=== PATIENT | female | born 1960 | race Caucasian/White ===

== ENCOUNTER 2017-05-02 20:10 | Emergency (ER) | payer MEDICARE, MEDICAID ==
[~2017-05-02] VITALS: Ht 162.6 cm; Wt 116.1 kg
[~2017-05-02 20:10] MED LIST: AMLODIPINE BESY10 MG PO; ANTI-ITCH28 GM TP; ARTIFICIAL TEA1 EACH OPHTHALMIC; CALCIUM500 M1 PO; CLARITIN10 MG PO; COZAAR 50 MG TA50 M1 PO; IBUPROFEN 800800 M1 PO; LOPERAMIDE 2 MG2 M1 PO; MILK OF MA2400 MG/10 PO; NORTRIPTYLINE H25 M3 PO; NYSTATIN 100,0015 G1 TOP; Q-TUSSIN100 MG/5 M PO; SYNTHROID175 MCG PO; TOPROL XL25 MG PO; TRAMADOL 50 MG50 MG PO; TRIAMCINOLONE A80 G2 TOP; TYLENOL EXTRA500 MG PO; VENTOLIN HFA 1818 GM INH; VITAMIN B-1100 M1 PO; VITAMIN D1000 UNI1 PO; ZPAK PO
[2017-05-02] MEDS ORDERED: LOPRESSOR100 M1 PO (20:32)
[2017-05-02] MEDS ORDERED: [UNRECOGNIZED DRUG - OTHER] (20:33)
[2017-05-02] MEDS ORDERED: BENZONATATE200 MG PO (20:33)
[2017-05-02] MEDS ORDERED: CALMOSEPTINE O3.5 GM TOP (20:33)
[2017-05-02] MEDS ORDERED: VITAMIN B-12500 MCG PO (20:33)
[2017-05-02] MEDS ORDERED: TUSSIN100 MG/5 M PO (20:34)
[2017-05-02 21:22] LABS: ABSOLUTE BASOPHILS 0.1 thou/uL (0.0-0.2); ABSOLUTE EOSINOPHILS 0.3 thou/uL (0.0-0.7); ABSOLUTE LYMPHOCYTES 2.6 thou/uL (0.8-5.3); ABSOLUTE MONOCYTES 0.7 thou/uL (0.0-1.2); ABSOLUTE NEUTROPHILS 5.4 thou/uL (1.6-8.1); BASOPHILS 0.6 %; EOSINOPHILS 3.1 %; HEMATOCRIT 40.7 % (37.0-47.0); HEMOGLOBIN 13.4 gm/dL (12.0-15.0); LYMPHOCYTES 28.5 %; MCHC 32.8 g/dL (28.0-37.0); MCV 91.5 fL (80.0-100.0); MPV 7.8 fl. (7.2-11.1); NUCLEATED RBCS 0 /100WBC; PLATELET COUNT* 274 thou/uL (150-400); POLYS 59.8 %; RBC 4.45 mil/uL (4.20-5.00); RDW-CV 13.9 % (10.5-14.5)
[2017-05-02 21:37] LABS: ANION GAP 7 mmol/L (7-16); BUN 13 mg/dL (7-18); CALCIUM 9.6 mg/dL (8.5-10.1); CHLORIDE 100 mmol/L (98-107); CO2 31 mmol/L (21-32); CREATININE 0.9 mg/dL (0.6-1.3); GLUCOSE 118 mg/dL (70-99); POTASSIUM 3.7 mmol/L (3.5-5.1); SODIUM 138 mmol/L (136-145)
[2017-05-02 21:48] LABS: ALBUMIN 3.6 g/dL (3.4-5.0); ALKALINE PHOSPHATASE 140 U/L (46-116); NT-PRO BRAIN NAT PEPTIDE 231 pg/mL (<300); SGOT 17 U/L (15-37); SGPT 24 U/L (30-65); TOTAL BILIRUBIN 0.2 mg/dL (<0.1-1.0); TOTAL PROTEIN 7.8 g/dL (6.4-8.2); TROPONIN-I LEVEL <0.06 ng/mL (<0.06)
[2017-05-02 23:39] VITALS: BP 146/90
--- NOTE | 2017-05-03 16:36 | EKG ---
[place] [address] ELECTROCARDIOGRAM REPORT Name: JEN DOUGLAS Room: [facility]#: [id number] Admission: 05/02/17 Attend Phys: Discharge: 05/02/17 Date of : 60 Report #: [id number] THIS REPORT FOR: //name// [facility] ED Test Date: 2017-05-02 Test Time: 21:06:28 Pat Name: JEN DOUGLAS Department: Room: Gender: F Lease Administration Analyst: ARLEY : 1960 Requested By: Shailesh Kumar Order Number: [id number] MD: Slade Barcenas Measurements Intervals [place] Rate: 84 P: 61 [place]: 176 QRS: 19 QRSD: 112 T: 66 QT: 357 QTc: 422 Interpretive Statements Sinus rhythm No previous ECG available for comparison Electronically Signed On 05-03-2017 16:36:10 SALES AND MARKETING ENGINEER by Slade Barcenas [email or web address] <ELECTRONICALLY SIGNED> By: Slade Barcenas MD, [facility] 05/03/17 1636 2106 2106 Slade Barcenas MD, FACC /EPI
== END 2017-05-02 23:40 | disposition home or self-care (01) ==
LOC: M.ERS 20:10
PROVIDERS: Nurse Practitioner Family
DX: I10 Essential (primary) hypertension (principal); E89.0 Postprocedural hypothyroidism; Z98.890 Other specified postprocedural states

== ENCOUNTER 2017-06-05 16:51 | Emergency (ER) | payer MEDICARE, MEDICAID ==
[~2017-06-05] VITALS: Ht 162.6 cm; Wt 113.8 kg
[~2017-06-05 16:51] MED LIST changes: +BENZONATATE200 MG PO; +CALMOSEPTINE O3.5 GM TOP; +LOPRESSOR100 M1 PO; +TUSSIN100 MG/5 M PO; +VITAMIN B-12500 MCG PO; +[UNRECOGNIZED DRUG - OTHER]
[2017-06-05 17:36] LABS: INFLUENZA A ANTIGEN None Detected (None Detect); INFLUENZA B ANTIGEN None Detected (None Detect)
[2017-06-05] MEDS ORDERED: ALBUTEROL2.5 MG/0.5 INH (18:20)
[2017-06-05] MEDS ORDERED: AUGMENTIN 875-1 EACH PO (18:20)
[2017-06-05] MEDS ORDERED: NEBULIZER MISCELL (18:20)
[2017-06-05 18:51] VITALS: BP 136/92
--- NOTE | 2017-06-06 15:52 | EKG ---
[place] [address] ELECTROCARDIOGRAM REPORT Name: JEN DOUGLAS Room: [facility]#: [id number] Admission: 06/05/17 Attend Phys: Discharge: 06/05/17 Date of : 60 Report #: [id number] THIS REPORT FOR: //name// [facility] ED Test Date: 2017-06-05 Test Time: 18:38:07 Pat Name: JEN DOUGLAS Department: Room: Gender: F Spring Manufacturing Set Up Technician: Ender SAMANO : 1960 Requested By: Forrest Aldana Order Number: [id number] MD: Gregorio Rey Measurements Intervals [place] Rate: 67 P: 65 [place]: 174 QRS: 23 QRSD: 102 T: 63 QT: 420 QTc: 444 Interpretive Statements Sinus rhythm Baseline wander in lead(s) V1,V2 Electronically Signed On 06-06-2017 15:52:35 HAIRMASTERS MANAGER by Gregorio Rey [email or web address] <ELECTRONICALLY SIGNED> By: Gregorio Rey MD, [facility] 06/06/17 1552 1838 1838 Gregorio Rey MD, FACC /EPI
== END 2017-06-05 18:52 | disposition home or self-care (01) ==
LOC: M.ERS 16:51
PROVIDERS: Nurse Practitioner Family
DX: J40 Bronchitis, not specified as acute or chronic (principal); I10 Essential (primary) hypertension; Z88.8 Allergy status to other drugs, medicaments and biological substances

== ENCOUNTER → 2017-07-13 | Outpatient (CLI) | payer MEDICARE, MEDICAID ==
[~2017-07-13] MED LIST changes: +ALBUTEROL2.5 MG/0.5 INH; +ANTIVERT25 MG PO; +AUGMENTIN 875-1 EACH PO; +KLOR-CON 1010 MEQ PO; +LASIX 20 MG TAB20 MG PO; +LEVAQUIN 500 M500 M2 PO; +MOBIC15 MG PO; +MUCINEX600 MG PO; +NEBULIZER MISCELL; +NORVASC5 MG PO; +PREDNISONE 20 M20 MG PO
== END ==
LOC: M.RAD 13:57
DX: R06.09 Other forms of dyspnea (principal); R60.0 Localized edema

== ENCOUNTER → 2017-07-19 | Outpatient (CLI) | payer MEDICARE, MEDICAID | LOC: M.MRI 11:17 | DX: M23.361 Other meniscus derangements, other lateral meniscus, right knee (principal); M17.9 Osteoarthritis of knee, unspecified ==

== ENCOUNTER 2017-08-27 07:55 | Inpatient (IN) | payer MEDICARE, MEDICAID ==
[~2017-08-27] VITALS: Ht 162.6 cm; Wt 108.9 kg
[~2017-08-27 07:55] MED LIST changes: -ANTIVERT25 MG PO; -KLOR-CON 1010 MEQ PO; -LASIX 20 MG TAB20 MG PO; -LEVAQUIN 500 M500 M2 PO; -MOBIC15 MG PO; -MUCINEX600 MG PO; -NORVASC5 MG PO; -PREDNISONE 20 M20 MG PO
[2017-08-27 07:58] VITALS: BP 161/102
[2017-08-27] MEDS ORDERED: LASIX 20 MG TAB20 MG PO (08:11)
[2017-08-27] MEDS ORDERED: MOBIC15 MG PO (08:12)
[2017-08-27] MEDS ORDERED: KLOR-CON 1010 MEQ PO (08:12)
[2017-08-27 08:16] LABS: ABSOLUTE EOSINOPHILS 0.2 thou/uL (0.0-0.7); ABSOLUTE LYMPHOCYTES 1.2 thou/uL (0.8-5.3); ABSOLUTE MONOCYTES 0.6 thou/uL (0.0-1.2); ABSOLUTE NEUTROPHILS 4.3 thou/uL (1.6-8.1); BASOPHILS 0.7 %; EOSINOPHILS 3.1 %; HEMATOCRIT 39.5 % (37.0-47.0); HEMOGLOBIN 13.2 gm/dL (12.0-15.0); LYMPHOCYTES 18.4 %; MCHC 33.5 g/dL (28.0-37.0); MCV 89.5 fL (80.0-100.0); MPV 8.2 fl. (7.2-11.1); NUCLEATED RBCS 0 /100WBC; PLATELET COUNT* 224 thou/uL (150-400); POLYS 68.8 %; RBC 4.41 mil/uL (4.20-5.00); RDW-CV 14.1 % (10.5-14.5); WBC 6.3 thou/uL (4.0-11.0)
[2017-08-27 08:33] LABS: ANION GAP 9 mmol/L (7-16); BUN 11 mg/dL (7-18); CALCIUM 8.9 mg/dL (8.5-10.1); CHLORIDE 102 mmol/L (98-107); CO2 29 mmol/L (21-32); CREATININE 0.9 mg/dL (0.6-1.3); GLUCOSE 129 mg/dL (70-99); POTASSIUM 3.7 mmol/L (3.5-5.1); SODIUM 140 mmol/L (136-145)
[2017-08-27 08:44] LABS: ALBUMIN 3.4 g/dL (3.4-5.0); ALKALINE PHOSPHATASE 124 U/L (46-116); NT-PRO BRAIN NAT PEPTIDE 120 pg/mL (<300); SGOT 16 U/L (15-37); SGPT 22 U/L (30-65); TOTAL BILIRUBIN 0.3 mg/dL (<0.1-1.0); TROPONIN-I LEVEL <0.06 ng/mL (<0.06)
[2017-08-27 09:30] VITALS: BP 153/93
[2017-08-27 09:44] VITALS: BP 174/94
--- NOTE | 2017-08-27 09:44 | NUR ---
PATIENT ARRIVED TO ROOM 111 VIA CART FROM ER AT THIS TIME. ASSESSMENT AND HISTORY OBTAINED. PATIENT DENIES PAIN. CAREGIVERS AT BEDSIDE FROM [facility] THAT PATIENT RESIDES AT. SALINE LOCK PATENT TO LEFT HAND. FALL PRECAUTIONS IN PLACE. CALL LIGHT WITHIN REACH. WILL CONTINUE WITH PLAN OF CARE.
--- NOTE | 2017-08-27 10:34 | NUR ---
CALL PLACED TO PUBLIC ACCREDITATION SPECIALIST TO OBTAIN CONSENT TO TREAT . AWAITING CALL BACK AT THIS TIME.
[2017-08-27] MEDS ORDERED: MUCINEX600 MG PO (11:53)
[2017-08-27 15:32] VITALS: BP 149/76
--- NOTE | 2017-08-27 18:38 | NUR ---
PATIENT HAS DENIED PAIN OR SHORTNESS OF AIR SINCE BEING ADMITTED. TITRATED TO ROOM AIR SATS 92%. HAS BEEN UP TO CHAIR FOR MOST OF SHIFT. IV ANTIBIOTICS INFUSED, IV SALINE LOCK. PATIENT CONTINUES ON IV STERIODS. UP WITH SBA TO BATHROOM. HOURLY ROUNDING COMPLETED. CALL LIGHT WITHIN REACH. WILL CONTINUE WITH PLAN OF CARE.
[2017-08-27 21:00] VITALS: BP 141/81
[2017-08-28 03:49] LABS: HEMATOCRIT 39.4 % (37.0-47.0); HEMOGLOBIN 13.4 gm/dL (12.0-15.0); MCH 30.3 pg (26.0-34.0); MCHC 33.9 g/dL (28.0-37.0); MCV 89.5 fL (80.0-100.0); MPV 8.5 fl. (7.2-11.1); RBC 4.41 mil/uL (4.20-5.00); RDW-CV 13.9 % (10.5-14.5); WBC 8.9 thou/uL (4.0-11.0)
[2017-08-28 04:05] LABS: ALBUMIN 3.1 g/dL (3.4-5.0); CALCIUM 8.9 mg/dL (8.5-10.1); MAGNESIUM 2.1 mg/dL (1.8-2.4); TOTAL BILIRUBIN 0.2 mg/dL (<0.1-1.0); TOTAL PROTEIN 6.6 g/dL (6.4-8.2)
--- NOTE | 2017-08-28 06:55 | NUR ---
PT SLEPT MOST OF SHIFT. ASSESSMENT DOCUMENTED. MEDS GIVEN PER E-MAR. IV PATENT. NO REPORTS OF PAIN OR NASUEA. PT REPORTS THAT SHE FEELS HER BREATHING IS BETTER AND WANTS TO KNOW WHEN SHE CAN GO HOME. PT CONTINUES TO WEAR 2L O2 PER NC. WILL CONTINUE WITH PLAN OF CARE.
[2017-08-28 07:56] VITALS: BP 148/83
[2017-08-28] MEDS ORDERED: PREDNISONE 20 M20 MG PO (09:43)
[2017-08-28] MEDS ORDERED: LEVAQUIN 500 M500 M2 PO (09:43)
[2017-08-28 10:14] VITALS: BP 148/83
--- NOTE | 2017-08-28 10:30 | NUR ---
ASSUMED CARE OF PATIENT AFTER REPORT THIS MORNING. PATIENT AWAKE, ALERT, AND ORIENTED APPROPRIATELY. PHYSICAL ASSESSMENT COMPLETED AND CHARTED. NO COMPLAINTS OF PAIN. VITAL SIGNS STABLE. OXYGEN SATURATION WITHIN NORMAL LIMITS ON ROOM AIR. GIVEN SCHEDULED MEDICATIONS, SEE EMAR FOR DOCUMENTATION. RECEIVED ORDERS TO DISCHARGE PATIENT BACK TO [facility]. [facility] CONTACTED BY THIS NURSE AND TRANSPORTATION SET UP. [facility] TO RETRIEVE PATIENT APPROXIMATELY 1100. CALLED TO NOTIFY PUBLIC EXPANSION JOINT BUILDER OF PATIENT'S DISCHARGE AND THE OFFICE WAS NOTIFIED. GROUP WORK PROGRAM DIRECTOR STATED I DID NOT NEED TO TALK TO P.A. DIRECTLY. IV DISCONTINUED. DISCHARGE PAPERWORK COMPLETED AND SIGNED BY ALL APPROPRIATE PARTIES. WAITING FOR PATIENT'S RIDE AT THIS TIME.
--- NOTE | 2017-08-28 10:52 | NUR ---
ODESSA FROM [facility] HERE TO TRANSPORT PATIENT BACK TO [facility]. SCRIPTS GIVEN IN PAPERWORK AND DISCUSSED PATIENT'S NEED FOR A NEW NEBULIZER. GIVEN SCRIPT FOR THAT WELL. ODESSA STATED SHE WOULD BE ABLE TO GET ONE. PATIENT DISCHARGING AT THIS TIME WITH BELONGINGS IN HER POSSESSION. ESCORTED TO EXIT VIA WHEELCHAIR BY JONO GRAMAJO.
--- NOTE | 2017-08-28 12:02 | EKG ---
[place] [address] ELECTROCARDIOGRAM REPORT Name: JEN DOUGLAS Room: [address]#: [id number] Admission: 08/27/17 Attend Phys: Sadaf Smith MD Discharge: 08/28/17 Date of : 60 Report #: [id number] THIS REPORT FOR: //name// [facility] ED Test Date: 2017-08-27 Test Time: 08:06:29 Pat Name: JEN DOUGLAS Department: Room: Gender: Slabber: OR : 1960 Requested By: Miguel A Aguilar Order Number: [id number] : Jerry Shaikh Measurements Intervals [place] Rate: 103 P: 55 [place]: 201 QRS: 17 QRSD: 89 T: 60 QT: 335 QTc: 439 Interpretive Statements Sinus tachycardia Borderline prolonged [place] interval Compared to ECG 06/05/2017 18:38:07 Sinus rhythm no longer present Electronically Signed On 08-28-2017 12:02:03 CDT by Jerry Shaikh [email or web address] <ELECTRONICALLY SIGNED> By: Peggy Shaikh MD, [facility] 08/28/17 1202 0806 0806 F. Jerry Shaikh MD, [facility] /EPI
== END 2017-08-28 10:56 | disposition home health service (06) | DRG 189 ==
LOC: M.ERS 07:55 → M.TBA-ER 09:03 → M.ORTHSURG 09:29
PROVIDERS: Family Medicine; ADMIT Internal Medicine
DX: J96.01 Acute respiratory failure with hypoxia (principal); R65.10 Systemic inflammatory response syndrome (SIRS) of non-infectious origin without acute organ dysfunction; I10 Essential (primary) hypertension; J40 Bronchitis, not specified as acute or chronic; Z79.899 Other long term (current) drug therapy; Z88.8 Allergy status to other drugs, medicaments and biological substances; Z88.1 Allergy status to other antibiotic agents

== ENCOUNTER 2017-09-07 18:34 | Emergency (ER) | payer MEDICARE, MEDICAID ==
[~2017-09-07] VITALS: Ht 162.6 cm; Wt 109.3 kg
[~2017-09-07 18:34] MED LIST changes: +KLOR-CON 1010 MEQ PO; +LASIX 20 MG TAB20 MG PO; +LEVAQUIN 500 M500 M2 PO; +MOBIC15 MG PO; +MUCINEX600 MG PO; +PREDNISONE 20 M20 MG PO
[2017-09-07 19:23] LABS: HEMATOCRIT 39.4 % (37.0-47.0); MCH 29.7 pg (26.0-34.0); MCHC 32.9 g/dL (28.0-37.0); MCV 90.3 fL (80.0-100.0); MPV 7.6 fl. (7.2-11.1); NUCLEATED RBCS 0 /100WBC; PLATELET COUNT* 236 thou/uL (150-400); RBC 4.36 mil/uL (4.20-5.00); RDW-CV 14.1 % (10.5-14.5); WBC 8.6 thou/uL (4.0-11.0)
[2017-09-07 19:27] LABS: CALCIUM 9.8 mg/dL (8.5-10.1); CREATININE 1.1 mg/dL (0.6-1.3); POTASSIUM 3.9 mmol/L (3.5-5.1)
[2017-09-07 19:53] LABS: ABSOLUTE BASOPHILS 0.1 thou/uL (0.0-0.2); ABSOLUTE EOSINOPHILS 0.3 thou/uL (0.0-0.7); ABSOLUTE LYMPHOCYTES 2.4 thou/uL (0.8-5.3); ABSOLUTE MONOCYTES 0.4 thou/uL (0.0-1.2); ABSOLUTE NEUTROPHILS 5.4 thou/uL (1.6-8.1)
[2017-09-07 19:54] LABS: PLATELET ESTIMATE ADEQUATE
[2017-09-07 20:16] VITALS: BP 148/92
== END 2017-09-07 20:19 | disposition home or self-care (01) ==
LOC: M.ERS 18:34
PROVIDERS: Nurse Practitioner
DX: R60.0 Localized edema (principal); I10 Essential (primary) hypertension; Z88.1 Allergy status to other antibiotic agents; Z88.8 Allergy status to other drugs, medicaments and biological substances

== ENCOUNTER 2017-10-20 09:15 | Emergency (ER) | payer MEDICARE, MEDICAID ==
[~2017-10-20] VITALS: Ht 165.1 cm; Wt 115.7 kg
[2017-10-20] MEDS ORDERED: NORVASC5 MG PO (09:25)
[2017-10-20 09:53] LABS: ABSOLUTE EOSINOPHILS 0.5 thou/uL (0.0-0.7); ABSOLUTE LYMPHOCYTES 1.4 thou/uL (0.8-5.3); ABSOLUTE MONOCYTES 0.6 thou/uL (0.0-1.2); ABSOLUTE NEUTROPHILS 4.3 thou/uL (1.6-8.1); BASOPHILS 0.6 %; EOSINOPHILS 7.9 %; HEMATOCRIT 40.6 % (37.0-47.0); HEMOGLOBIN 13.4 gm/dL (12.0-15.0); LYMPHOCYTES 20.3 %; MCH 30.5 pg (26.0-34.0); MCV 92.2 fL (80.0-100.0); MONOCYTES 8.5 %; MPV 7.8 fl. (7.2-11.1); NUCLEATED RBCS 0 /100WBC; PLATELET COUNT* 285 thou/uL (150-400); POLYS 62.7 %; RBC 4.41 mil/uL (4.20-5.00); RDW-CV 15.3 % (10.5-14.5); WBC 6.9 thou/uL (4.0-11.0)
[2017-10-20 09:59] LABS: ANION GAP 5 mmol/L (7-16); BUN 20 mg/dL (7-18); CHLORIDE 102 mmol/L (98-107); CO2 30 mmol/L (21-32); CREATININE 0.8 mg/dL (0.6-1.3); GLUCOSE 76 mg/dL (70-99); SODIUM 137 mmol/L (136-145)
[2017-10-20 10:09] LABS: ALBUMIN 3.5 g/dL (3.4-5.0); ALKALINE PHOSPHATASE 127 U/L (46-116); SGOT 24 U/L (15-37); SGPT 26 U/L (30-65); TOTAL BILIRUBIN 0.3 mg/dL (<0.1-1.0); TOTAL PROTEIN 7.5 g/dL (6.4-8.2); TROPONIN-I LEVEL <0.06 ng/mL (<0.06)
[2017-10-20] MEDS ORDERED: ANTIVERT25 MG PO (10:48)
[2017-10-20 11:09] VITALS: BP 139/78
--- NOTE | 2017-10-20 13:55 | EKG ---
[place] [address] ELECTROCARDIOGRAM REPORT Name: JEN DOUGLAS Room: [facility]#: [id number] Admission: 10/20/17 Attend Phys: Discharge: 10/20/17 Date of : 60 Report #: [id number] THIS REPORT FOR: //name// [facility] ED Test Date: 2017-10-20 Test Time: 09:40:21 Pat Name: JEN DOUGLAS Department: Room: Gender: F Shoe Stitcher: Ender PASCUAL : 1960 Requested By: Forrest Aldana Order Number: [id number] MD: Juan Barragan Measurements Intervals [place] Rate: 72 P: 55 [place]: 192 QRS: 21 QRSD: 94 T: 53 QT: 380 QTc: 416 Interpretive Statements Sinus rhythm consider lateral infarct, old Baseline wander in lead(s) I,III,aVR,aVL Compared to ECG 08/27/2017 08:06:29 Sinus tachycardia no longer present Electronically Signed On 10-20-2017 13:55:08 CDT by Juan Barragan [email or web address] <ELECTRONICALLY SIGNED> By: Juan Barragan MD, FACC 10/20/17 1355 0940 0940 Juan Barragan MD, [facility] /EPI
== END 2017-10-20 11:10 | disposition home or self-care (01) ==
LOC: M.ERS 09:15
PROVIDERS: Emergency Medicine Emergency Medical Services
DX: R42 Dizziness and giddiness (principal); I10 Essential (primary) hypertension; Z88.8 Allergy status to other drugs, medicaments and biological substances

== ENCOUNTER 2017-11-21 18:18 | Emergency (ER) | payer MEDICARE, MEDICAID ==
[~2017-11-21] VITALS: Ht 162.6 cm; Wt 115.6 kg
[~2017-11-21 18:18] MED LIST changes: +ANTIVERT25 MG PO; +NORVASC5 MG PO
[2017-11-21 18:42] LABS: ABSOLUTE BASOPHILS 0.1 thou/uL (0.0-0.2); ABSOLUTE EOSINOPHILS 0.5 thou/uL (0.0-0.7); ABSOLUTE LYMPHOCYTES 2.5 thou/uL (0.8-5.3); ABSOLUTE MONOCYTES 0.5 thou/uL (0.0-1.2); ABSOLUTE NEUTROPHILS 4.1 thou/uL (1.6-8.1); BASOPHILS 0.9 %; HEMATOCRIT 39.9 % (37.0-47.0); HEMOGLOBIN 13.3 gm/dL (12.0-15.0); LYMPHOCYTES 32.4 %; MCH 30.8 pg (26.0-34.0); MCHC 33.3 g/dL (28.0-37.0); MCV 92.6 fL (80.0-100.0); MONOCYTES 6.9 %; MPV 7.5 fl. (7.2-11.1); NUCLEATED RBCS 0 /100WBC; PLATELET COUNT* 284 thou/uL (150-400); POLYS 52.8 %; RBC 4.31 mil/uL (4.20-5.00); RDW-CV 14.6 % (10.5-14.5); WBC 7.7 thou/uL (4.0-11.0)
[2017-11-21 18:50] LABS: ANION GAP 9 mmol/L (7-16); BUN 19 mg/dL (7-18); CALCIUM 9.4 mg/dL (8.5-10.1); CHLORIDE 100 mmol/L (98-107); CO2 30 mmol/L (21-32); CREATININE 0.9 mg/dL (0.6-1.3); GLUCOSE 110 mg/dL (70-99); SODIUM 139 mmol/L (136-145)
[2017-11-21 18:53] LABS: APTT 32.2 Seconds (25.0-31.3)
[2017-11-21 18:57] LABS: ALBUMIN 3.7 g/dL (3.4-5.0); ALKALINE PHOSPHATASE 120 U/L (46-116); LIPASE 117 U/L (73-393); SGOT 20 U/L (15-37); SGPT 23 U/L (30-65); TOTAL BILIRUBIN 0.3 mg/dL (<0.1-1.0); TOTAL PROTEIN 7.6 g/dL (6.4-8.2); TROPONIN-I LEVEL <0.06 ng/mL (<0.06)
[2017-11-21 20:05] LABS: URINE BILIRUBIN NEGATIVE (Negative); URINE BLOOD NEGATIVE (Negative); URINE CLARITY CLEAR; URINE COLOR YELLOW; URINE GLUCOSE-RANDOM NEGATIVE (Negative); URINE KETONES NEGATIVE (Negative); URINE LEUKOCYTES-REFLEX NEGATIVE (Negative); URINE NITRITE-REFLEX NEGATIVE (Negative); URINE PROTEIN NEGATIVE (Negative); URINE SPECIFIC GRAVITY <= 1.005 (1.005-1.030); URINE UROBILINOGEN 0.2 E.U./dl (0.2-1.0)
[2017-11-21 20:30] VITALS: BP 163/83
--- NOTE | 2017-11-22 17:17 | EKG ---
[place] [address] ELECTROCARDIOGRAM REPORT Name: JEN DOUGLAS Room: [facility]#: [id number] Admission: 11/21/17 Attend Phys: Discharge: 11/21/17 Date of : 60 Report #: [id number] THIS REPORT FOR: //name// [facility] ED Test Date: 2017-11-21 Test Time: 18:28:39 Pat Name: JEN DOUGLAS Department: Room: Gender: F Wire Wrapper Machine Operator: Ender PASCUAL : 1960 Requested By: Priscilla Garcia Order Number: [id number] MD: Slade Barcenas Measurements Intervals [place] Rate: 76 P: 68 [place]: 184 QRS: 32 QRSD: 106 T: 74 QT: 383 QTc: 431 Interpretive Statements Sinus rhythm Compared to ECG 10/20/2017 09:40:21 Myocardial infarct finding no longer present Electronically Signed On 11-22-2017 17:17:48 CDT by Slade Barcenas [email or web address] <ELECTRONICALLY SIGNED> By: Slade Barcenas MD, [facility] 11/22/17 1717 27 27 Slade Barcenas MD, [facility] /EPI
== END 2017-11-21 20:32 | disposition home or self-care (01) ==
LOC: M.ERS 18:18
PROVIDERS: Personal Emergency Response Attendant; Physician Assistant
DX: I10 Essential (primary) hypertension (principal); R51 Headache; R60.0 Localized edema; Z88.8 Allergy status to other drugs, medicaments and biological substances

== ENCOUNTER → 2018-08-08 | Outpatient (CLI) | payer MEDICARE, MEDICAID | LOC: M.RAD 14:55 | DX: Z13.820 Encounter for screening for osteoporosis (principal); Z78.0 Asymptomatic menopausal state; Z88.8 Allergy status to other drugs, medicaments and biological substances; Z88.2 Allergy status to sulfonamides ==

== ENCOUNTER → 2019-05-23 | Outpatient (CLI) | payer MEDICARE, MEDICAID | LOC: M.RAD 05-11 10:00 | DX: T17.308A Unspecified foreign body in larynx causing other injury, initial encounter (principal); X58.XXXA Exposure to other specified factors, initial encounter; Y93.89 Activity, other specified; Y92.89 Other specified places as the place of occurrence of the external cause; Y99.8 Other external cause status ==

== ENCOUNTER → 2020-01-14 | Outpatient (CLI) | payer MEDICARE, MEDICAID | LOC: M.ULTRA 01-08 13:39 | PROVIDERS: ATTEND Registered Nurse Diabetes Educator | DX: D25.9 Leiomyoma of uterus, unspecified (principal); N83.8 Other noninflammatory disorders of ovary, fallopian tube and broad ligament; N95.0 Postmenopausal bleeding; N93.9 Abnormal uterine and vaginal bleeding, unspecified ==

== ENCOUNTER 2020-01-16 21:06 | Inpatient (IN) | payer MEDICARE, MEDICAID ==
[~2020-01-16] VITALS: Ht 162.6 cm; Wt 103.6 kg
[2020-01-16 21:15] VITALS: BP 151/87
[2020-01-16] MEDS ORDERED: BUDESONIDE0.25 MG/2 INH (21:24)
[2020-01-16] MEDS ORDERED: HYDRALAZINE 10M10 MG PO (21:24)
[2020-01-16] MEDS ORDERED: VOLTAREN GEL 1100 GM TOP (21:26)
[2020-01-16 21:50] LABS: ABSOLUTE EOSINOPHILS 0.5 thou/uL (0.0-0.7); ABSOLUTE LYMPHOCYTES 1.9 thou/uL (0.8-5.3); ABSOLUTE MONOCYTES 0.6 thou/uL (0.0-1.2); ABSOLUTE NEUTROPHILS 3.7 thou/uL (1.6-8.1); BASOPHILS 0.6 %; HEMATOCRIT 38.6 % (37.0-47.0); HEMOGLOBIN 13.1 gm/dL (12.0-15.0); LYMPHOCYTES 27.5 %; MCH 30.8 pg (26.0-34.0); MCV 90.7 fL (80.0-100.0); MONOCYTES 9.5 %; MPV 7.5 fl. (7.2-11.1); NUCLEATED RBCS 0 /100WBC; PLATELET COUNT* 255 thou/uL (150-400); POLYS 54.4 %; RBC 4.26 mil/uL (4.20-5.00); RDW-CV 13.3 % (10.5-14.5); WBC 6.7 thou/uL (4.0-11.0)
[2020-01-16 22:00] LABS: CALCIUM 9.1 mg/dL (8.5-10.1); CREATININE 1.1 mg/dL (0.6-1.3); POTASSIUM 3.7 mmol/L (3.5-5.1)
[2020-01-16 22:03] LABS: PROTIME 10.3 Seconds (9.20-11.50)
[2020-01-16 22:12] LABS: ALBUMIN 3.5 g/dL (3.4-5.0); TOTAL BILIRUBIN 0.3 mg/dL (<0.1-1.0); TOTAL PROTEIN 7.2 g/dL (6.4-8.2)
[2020-01-17 01:04] VITALS: BP 143/83
[2020-01-17] MEDS ORDERED: AMOXIL 875 MG875 M2 PO (02:59)
[2020-01-17] MEDS ORDERED: CALMOSEPTINE OI71 GM (03:22)
[2020-01-17] MEDS ORDERED: PEPTO-BISM262 MG/15 PO (03:25)
[2020-01-17] MEDS ORDERED: CLOBETASOL EMOL15 GM TOP (03:28)
[2020-01-17] MEDS ORDERED: FUROSEMIDE 20 M20 MG PO (03:30)
[2020-01-17 07:30] VITALS: BP 115/63
[2020-01-17 09:55] LABS: URINE BILIRUBIN NEGATIVE (Negative); URINE BLOOD NEGATIVE (Negative); URINE CLARITY CLEAR; URINE COLOR YELLOW; URINE GLUCOSE-RANDOM NEGATIVE (Negative); URINE KETONES NEGATIVE (Negative); URINE LEUKOCYTES-REFLEX NEGATIVE (Negative); URINE NITRITE-REFLEX NEGATIVE (Negative); URINE PROTEIN NEGATIVE (Negative); URINE UROBILINOGEN 0.2 E.U./dl (0.2-1.0)
--- NOTE | 2020-01-17 10:44 | EKG ---
[place] [address] ELECTROCARDIOGRAM REPORT Name: SHIRA DOUGLASTHILonnie Fleming Room: [address]#: [id number] Admission: 01/17/20 Attend Phys: Sadaf Smith, Discharge: Date of : 60 Date of Service: 01/17/20 0934 Report #: [id number] THIS REPORT FOR: //name// [facility] Test Date: 2020-01-17 Test Time: 09:34:46 Pat Name: JEN DOUGLAS Department: Room: [address] Gender: F Research Quality Assurance Specialist: VISHAL : 1960 Requested By: Francis Carter Order Number: [id number] MD: Juan Barragan Measurements Intervals [place] Rate: 104 P: 44 [place]: 184 QRS: 26 QRSD: 96 T: 67 QT: 328 QTc: 432 Interpretive Statements Sinus tachycardia Probable anterolateral infarct, old Compared to ECG 11/21/2017 18:28:39 Myocardial infarct finding now present Sinus rhythm no longer present Electronically Signed On 01-17-2020 10:44:43 CDT by Juan Barragan [email or web address] <ELECTRONICALLY SIGNED> By: Juan Barragan MD, [facility] 01/17/20 1044 0934 Juan Barragan MD, [facility] /EPI
--- NOTE | 2020-01-17 10:47 | EKG ---
[place] [address] ELECTROCARDIOGRAM REPORT Name: SHIRA DOUGLASTHILonnie Fleming Room: [address]#: [id number] Admission: 01/17/20 Attend Phys: Sadaf Smith, Discharge: Date of : 60 Date of Service: 01/16/202116 Report #: [id number] THIS REPORT FOR: //name// [facility] ED Test Date: 2020-01-16 Test Time: 21:17:30 Pat Name: JEN DOUGLAS Department: Room: [facility] Gender: F Cigar Bander Hand: CODY : 1960 Requested By: Priscilla Garcia Order Number: [id number] MD: Juan Barragan Measurements Intervals [place] Rate: 89 P: 67 [place]: 193 QRS: 24 QRSD: 95 T: 68 QT: 352 QTc: 429 Interpretive Statements Sinus rhythm Probable left atrial enlargement Compared to ECG 11/21/2017 18:28:39 No significant changes Electronically Signed On 01-17-2020 10:47:36 CDT by Juan Barragan [email or web address] <ELECTRONICALLY SIGNED> By: Juan Barragan MD, [facility] 01/17/20 1047 16 16 Juan Barragan MD, [facility] /EPI
[2020-01-17 11:02] LABS: CALCIUM 8.8 mg/dL (8.5-10.1); MAGNESIUM 1.9 mg/dL (1.8-2.4); POTASSIUM 3.7 mmol/L (3.5-5.1)
--- NOTE | 2020-01-17 11:47 | 2DMMODE ---
[place] [address] 2 D/M-MODE ECHOCARDIOGRAM Name: STELLAJEN A Room: [address] Ignacio Mcginnis#: [id number] Admission: 01/17/20 Attend Phys: Sadaf Smith, Discharge: Date of : 60 Date of Service: 01/17/20 1147 Report #: [id number] THIS REPORT FOR: cc: Cha Geller Tammy RNP Liston, Michael J. MD [facility] ~ APPROVED REPORT Study performed: 01/17/2020 10:58:57 EXAM: Comprehensive 2D, Doppler, and color-flow Echocardiogram Patient Location: In-Patient Room #: [facility] Status: routine BSA: 2.07 HR: 72 bpm BP: 143/83 mmHg Rhythm: NSR Other Information Study Quality: Good Indications AMS 2D Dimensions IVSd: 8.96 (7-11mm) LVOT Diam: 19.88 (18-24mm) LVDd: 45.72 mm PWd: 8.83 (7-11mm) Ascending Ao: 36.74 (22-36mm) LVDs: 28.47 (25-40mm) Aortic Root: 30.26 mm Volumes Left Atrial Volume (Systole) LA ESV Index: 18.00 mL/m2 Aortic Valve AoV Peak Austen.: 1.65 m/s AO Peak Gr.: 10.89 mmHg LVOT Max P.92 mmHg AO Mean Gr.: 6.41 mmHg LVOT Mean P.85 mmHg LVOT Max V: 1.73 m/s AO V2 VTI: 34.55 cm LVOT Mean V: 0.98 m/s LALITHA (VTI): 2.99 cm2 LVOT V1 VTI: 33.24 cm AI [place]: 2.30 m/s2 [place] [address] 2 D/M-MODE ECHOCARDIOGRAM Name: JEN DOUGLAS Room: [address] MSruthiRSruthi#: [id number] Admission: 01/17/20 Attend Phys: Sadaf Smith, Discharge: Date of : 60 Date of Service: 01/17/20 1147 Report #: [id number] AI PHT: 474.93 ms Mitral Valve E/A Ratio: 0.97 MV Decel. Time: 250.70 ms MV E Max Austen.: 0.68 m/s MV PHT: 72.70 ms MVA (PHT): 3.03 cm2 TDI E/Lateral E': 4.86 E/Medial E': 5.67 Medial E' Austen.: 0.12 m/s Lateral E' Austen.: 0.14 m/s Pulmonary Valve PV Peak Austen.: 1.02 m/s PV Peak Gr.: 4.17 mmHg Left Ventricle The left ventricle is normal size. There is normal LV segmental wall motion. There is normal left ventricular wall thickness. Left ventricular systolic function is normal. LVEF is 60-65%. The left ventricular diastolic function is normal. Right Ventricle The right ventricle is normal size. The right ventricular systolic function is normal. Atria The left atrium size is normal. The right atrium size is normal. Aortic Valve Mild aortic valve sclerosis. Mild aortic regurgitation. There is no aortic valvular stenosis. Mitral Valve The mitral valve is normal in structure. There is no mitral valve regurgitation noted. No evidence of mitral valve stenosis. Tricuspid Valve The tricuspid valve is normal in structure. Trace tricuspid regurgitation. Unable to assess PA pressure. Pulmonic Valve The pulmonary valve is normal in structure. There is no pulmonic [place] [address] 2 D/M-MODE ECHOCARDIOGRAM Name: JEN DOUGLAS Room: [address]#: [id number] Admission: 01/17/20 Attend Phys: Sadaf Smith, Discharge: Date of : 60 Date of Service: 01/17/20 1147 Report #: [id number] Great Vessels The aortic root is normal in size. IVC is normal in size and collapses >50% with inspiration. Pericardium There is no pericardial effusion. <Conclusion> The left ventricle is normal size. There is normal left ventricular wall thickness. Left ventricular systolic function is normal. LVEF is 60-65%. The left ventricular diastolic function is normal. Mild aortic valve sclerosis. Mild aortic regurgitation. Trace tricuspid regurgitation. IVC is normal in size and collapses >50% with inspiration. <ELECTRONICALLY SIGNED> By: Slade Barcenas MD, FACC 01/17/20 1147 1147 1147 Slade Barcenas MD, FACC /INF
[2020-01-17 14:24] VITALS: BP 117/60
[2020-01-18] VITALS (10 sets, daily range): BP systolic 93–145; BP diastolic 51–91
[2020-01-18 02:06] LABS: GLYCOHEMOGLOBIN (HGB A1C) 5.5 % (4.8-5.6)
[2020-01-18] MEDS ORDERED: LAMOTRIGINE25 MG PO (08:28)
[2020-01-19 04:06] VITALS: BP 137/69
[2020-01-19 08:00] VITALS: BP 113/60
[2020-01-19] MEDS ORDERED: LAMOTRIGINE25 MG PO ×2 (10:16→10:18)
[2020-01-19 10:40] VITALS: BP 113/60
[2020-01-19 12:43] VITALS: BP 108/66
--- NOTE | 2020-01-24 10:36 | CON ---
[address] [address] CONSULTATION Name: JEN DOUGLAS Room: [address] IN .R.#: [id number] Admission: 01/17/20 Attend Phys: Sadaf Smith MD Discharge: 01/19/20 Date of : 60 Report #: [id number] THIS REPORT FOR: //name// cc: Cha Geller Tammy RNP ~ THIS REPORT FOR: //name// CC: Sadaf Geller DATE OF SERVICE: 01/17/2020 HISTORY OF PRESENT ILLNESS: This is a 59-year-old female patient who was evaluated by me for an episode of syncope. The history is not very clear and is almost entirely from the records because she does not remember much about that. I reviewed the Emergency Room note as well as history and physical; looks like the patient was unfocused and disoriented and took out about 30 minutes to return back to the baseline. She feels back to the baseline; in fact, when I saw her, she had no specific complaint. REVIEW OF SYSTEMS: Indicate that she does have a history of meningioma with a CT scan indicate it has been unchanged. It is in the frontal area. She does not know if she has seen a neurosurgeon or not. She does have mental retardation and I cannot tell from the record what the etiology for that is, but it is a chronic process. REVIEW OF SYSTEMS: A 14-point review of system was carried out. She did have some headaches and vertigo, some delirium, intellectual disability. She does have a history of chronic bronchitis and bronchospasms. She has some dependent edema. This was her relevant 14-point review of system. PAST MEDICAL HISTORY: Positive for intellectual disability. FAMILY HISTORY: Unavailable. SOCIAL HISTORY: Looks like she lives in a supervised care, but that is from the record. PHYSICAL EXAMINATION: Pretty difficult. She wakes up; in fact, most of the time, she is awake. She tries to follow commands. It is difficult for her and not because of obtundation, but because she could not comprehend the commands all the time. If I ask her to lay her on the back, she laid down on her stomach, but she appeared to move her eyes in multiple directions. When I asked her to count fingers, she is able to do that. When I asked her to move both sides, she is able to do that. When I asked her whether she appreciate the touch, she does not say anything; similar thing is for [place]. [place] [address] CONSULTATION Name: JEN DOUGLAS Lonnie Room: [address] IN [facility].#: [id number] Admission: 01/17/20 Attend Phys: Sadaf Smith MD Discharge: 01/19/20 Date of : 60 Report #: [id number] not understand the instruction for cerebellar sign. I could not look at the fundus. She is an obese individual whose hearing and vision looks adequate. Blood pressure is 117/60, pulse is 70, temperature is 97.7. LABORATORY DATA: White count is 6.7. Blood sugar is 199. Her TSH is normal. CT scan showed meningioma. IMPRESSION: This patient does have a frontal meningioma and mental retardation. Both of them will predispose her for seizures. The chances of having seizure is so high and the chances of picking up seizures on EEG is low. Therefore, I will suggest starting on some seizure medication just because of meningioma is in the frontal area and it is highly epileptiform area. I will suggest Lamictal, it's dose can be gradually increased as an outpatient. We can also see how she does without any seizure medication, but with a frontal lobe meningioma, I will be more inclined to give her that. We will also check an EEG. If EEG shows pretty significant epileptiform activity, then faster acting medication like Vimpat or Keppra may have to be given. I am sure she has seen some neurosurgeon in the past. If not, then I will suggest making an appointment and she can have more followup as an outpatient. The last MRI we have in the computer is from almost 20 years ago when there was no tumor, but she had a CT on a regular basis, but she should see a neurosurgeon as an outpatient. I discussed with the patient this, but I am not sure how much she understands. Thank you very much for this referral. <ELECTRONICALLY SIGNED> By: Dino De Los Santos MD 01/24/20 1036 1750 2207Dino De Los Santos MD /hugo
--- NOTE | 2020-01-24 10:36 | EEG ---
[address] [address] EEG STUDY REPORT Name: JEN DOUGLAS Lonnie Room: [address] IN M.R.#: [id number] Admission: 01/17/20 Attend Phys: Sadaf Smith MD Discharge: 01/19/20 Date of : 60 Report #: [id number] THIS REPORT FOR: //name// [facility] DATE OF SERVICE: 01/17/2020 This patient is being evaluated for the possibility of seizure. EEG was done by placing the electrode by standard 10-20 system of electrode placement. Both referential and sequential montages were used for recording. Background activity in this patient's EEG is about 8-9 Hz and 30 microvolt. It is a symmetrical activity. The patient went to sleep that is associated with bilateral slowing and vertex sharp waves. Throughout the record, no active epileptiform activity was noticed. IMPRESSION: This patient's EEG does not demonstrate any active epileptiform activity. Thank you very much for this referral. <ELECTRONICALLY SIGNED> By: Dino De Los Santos MD 01/24/20 1036 1835 1937Dino De Los Santos MD /nt
== END 2020-01-19 16:00 | disposition home or self-care (01) | DRG 100 ==
LOC: M.ERS 21:06 → M.3W 01-17 → M.TBA-ER 01-17 → M.3W 01-17 → M.2W 01-17 12:45
PROVIDERS: Internal Medicine; Personal Emergency Response Attendant; ADMIT Internal Medicine; ATTEND Internal Medicine
DX: R56.9 Unspecified convulsions (principal); G93.41 Metabolic encephalopathy; I95.2 Hypotension due to drugs; F79 Unspecified intellectual disabilities; J42 Unspecified chronic bronchitis; J98.01 Acute bronchospasm; I10 Essential (primary) hypertension; D32.0 Benign neoplasm of cerebral meninges; R42 Dizziness and giddiness; Z20.828 Contact with and (suspected) exposure to other viral communicable diseases; Z79.899 Other long term (current) drug therapy; Z88.1 Allergy status to other antibiotic agents; Z88.2 Allergy status to sulfonamides; Z88.8 Allergy status to other drugs, medicaments and biological substances

== ENCOUNTER 2020-02-22 10:42 | Emergency (ER) | payer MEDICARE, MEDICAID ==
[~2020-02-22] VITALS: Ht 170.2 cm; Wt 98.9 kg
[~2020-02-22 10:42] MED LIST changes: +AMOXIL 875 MG875 M2 PO; +BUDESONIDE0.25 MG/2 INH; +CALMOSEPTINE OI71 GM; +CLOBETASOL EMOL15 GM TOP; +FUROSEMIDE 20 M20 MG PO; +HYDRALAZINE 10M10 MG PO; +LAMOTRIGINE25 MG PO; +PEPTO-BISM262 MG/15 PO; +VOLTAREN GEL 1100 GM TOP
[2020-02-22 11:08] LABS: ABSOLUTE EOSINOPHILS 0.3 thou/uL (0.0-0.7); ABSOLUTE LYMPHOCYTES 1.4 thou/uL (0.8-5.3); ABSOLUTE MONOCYTES 0.4 thou/uL (0.0-1.2); ABSOLUTE NEUTROPHILS 1.5 thou/uL (1.6-8.1); BASOPHILS 1.3 %; EOSINOPHILS 7.2 %; HEMATOCRIT 41.6 % (37.0-47.0); LYMPHOCYTES 39.5 %; MCH 30.3 pg (26.0-34.0); MCHC 33.6 g/dL (28.0-37.0); MCV 90.3 fL (80.0-100.0); MONOCYTES 11.7 %; MPV 7.4 fl. (7.2-11.1); NUCLEATED RBCS 0 /100WBC; PLATELET COUNT* 224 thou/uL (150-400); POLYS 40.3 %; RBC 4.61 mil/uL (4.20-5.00); RDW-CV 13.6 % (10.5-14.5); WBC 3.7 thou/uL (4.0-11.0)
[2020-02-22 11:12] LABS: CALCIUM 8.8 mg/dL (8.5-10.1); CREATININE 0.8 mg/dL (0.6-1.3); POTASSIUM 3.9 mmol/L (3.5-5.1)
[2020-02-22 11:16] LABS: APTT 30.9 Seconds (25.0-31.3); PROTIME 10.2 Seconds (9.20-11.50)
[2020-02-22 11:24] LABS: ALBUMIN 3.5 g/dL (3.4-5.0); TOTAL BILIRUBIN 0.4 mg/dL (<0.1-1.0); TOTAL PROTEIN 7.3 g/dL (6.4-8.2)
[2020-02-22] MEDS ORDERED: TESSALON PERLE100 MG PO (12:27)
[2020-02-22] MEDS ORDERED: PREDNISONE 20 M20 M1 PO (12:27)
[2020-02-22 13:02] VITALS: BP 132/76
--- NOTE | 2020-02-22 17:44 | EKG ---
[place] [address] ELECTROCARDIOGRAM REPORT Name: JEN DOUGLAS Room: [facility]#: [id number] Admission: 02/22/20 Attend Phys: Discharge: 02/22/20 Date of : 60 Date of Service: 02/22/20 1048 Report #: [id number] THIS REPORT FOR: //name// [facility] ED Test Date: 2020-02-22 Test Time: 10:48:20 Pat Name: JEN DOUGLAS Department: Room: Gender: F Magento Developer: LONI : 1960 Requested By: Miguel A Aguilar Order Number: [id number] MD: Slade Barcenas Measurements Intervals [place] Rate: 77 P: 36 [place]: 173 QRS: 12 QRSD: 100 T: 38 QT: 397 QTc: 450 Interpretive Statements Sinus rhythm Abnormal R-wave progression, early transition Compared to ECG 01/17/2020 09:34:46 Sinus tachycardia no longer present Myocardial infarct finding no longer present Electronically Signed On 02-22-2020 17:44:35 CDT by Slade Barcenas [email or web address] <ELECTRONICALLY SIGNED> By: Slade Barcenas MD, FACC 02/22/20 1744 1048 1048 Slade Barcenas MD, FAC /EPI
== END 2020-02-22 13:03 | disposition home or self-care (01) ==
LOC: M.ERS 10:42
PROVIDERS: Family Medicine
DX: U07.1 COVID-19 (principal); R06.00 Dyspnea, unspecified; I10 Essential (primary) hypertension; Z79.899 Other long term (current) drug therapy; Z88.8 Allergy status to other drugs, medicaments and biological substances; Z88.2 Allergy status to sulfonamides

== ENCOUNTER → 2020-06-13 | Outpatient (CLI) | payer MEDICARE, MEDICAID ==
[~2020-06-13] MED LIST changes: +PREDNISONE 20 M20 M1 PO; +TESSALON PERLE100 MG PO
== END ==
LOC: M.CT 10:36
PROVIDERS: ATTEND Internal Medicine
DX: G40.909 Epilepsy, unspecified, not intractable, without status epilepticus (principal); D32.9 Benign neoplasm of meninges, unspecified

== ENCOUNTER → 2020-08-06 | Outpatient (CLI) | payer MEDICARE, MEDICAID ==
[~2020-08-06] MED LIST changes: +CLEAR EYES REDN30 M1; +CULTURELLE KID1 EAC1; +MUCINEX600 MG; +REFRESH LIQUIGE15 ML
== END ==
LOC: M.RAD 10:14
PROVIDERS: ATTEND Registered Nurse Diabetes Educator
DX: Z12.31 Encounter for screening mammogram for malignant neoplasm of breast (principal)

== ENCOUNTER 2020-08-08 23:53 | Emergency (ER) | payer MEDICARE, MEDICAID ==
[~2020-08-08] VITALS: Ht 152.4 cm
[~2020-08-08 23:53] MED LIST changes: -CLEAR EYES REDN30 M1; -CULTURELLE KID1 EAC1; -MUCINEX600 MG; -REFRESH LIQUIGE15 ML
[2020-08-09] MEDS ORDERED: CULTURELLE KID1 EAC1 (00:21)
[2020-08-09] MEDS ORDERED: REFRESH LIQUIGE15 ML (00:21)
[2020-08-09] MEDS ORDERED: MUCINEX600 MG (00:22)
[2020-08-09] MEDS ORDERED: CLEAR EYES REDN30 M1 (00:24)
[2020-08-09 01:10] VITALS: BP 160/80
== END 2020-08-09 01:10 | disposition home or self-care (01) ==
LOC: M.ERS 23:53
DX: S50.12XA Contusion of left forearm, initial encounter (principal); S00.83XA Contusion of other part of head, initial encounter; M54.2 Cervicalgia; I10 Essential (primary) hypertension; Z88.2 Allergy status to sulfonamides; Z88.8 Allergy status to other drugs, medicaments and biological substances; W06.XXXA Fall from bed, initial encounter; Y93.89 Activity, other specified; Y92.89 Other specified places as the place of occurrence of the external cause; Y99.8 Other external cause status

== ENCOUNTER 2020-08-29 20:41 | Emergency (ER) | payer MEDICARE, MEDICAID ==
[~2020-08-29] VITALS: Ht 162.6 cm; Wt 94.4 kg
[~2020-08-29 20:41] MED LIST changes: +CLEAR EYES REDN30 M1; +CULTURELLE KID1 EAC1; +MUCINEX600 MG; +REFRESH LIQUIGE15 ML
[2020-08-29] MEDS ORDERED: NORVASC10 MG PO (21:02)
[2020-08-29] MEDS ORDERED: COZAAR 25 MG TA25 M1 PO (21:03)
[2020-08-29] MEDS ORDERED: MELOXICAM7.5 MG PO (21:04)
[2020-08-29] MEDS ORDERED: TOPROL XL100 MG PO (21:04)
[2020-08-29] MEDS ORDERED: MUCINEX DM ER1 EAC1 PO (21:05)
[2020-08-29] MEDS ORDERED: EFFER-K 10 MEQ10 ME1 PO (21:05)
[2020-08-29] MEDS ORDERED: SEROQUEL 25 MG25 MG PO (21:06)
[2020-08-29] MEDS ORDERED: SERTRALINE HCL100 MG PO (21:06)
[2020-08-29] MEDS ORDERED: VITAMIN B-121000 MC2 SUBLING (21:07)
[2020-08-29] MEDS ORDERED: VIMPAT50 MG PO (21:07)
[2020-08-29 21:20] LABS: ABSOLUTE BASOPHILS 0.1 thou/uL (0.0-0.2); ABSOLUTE EOSINOPHILS 0.4 thou/uL (0.0-0.7); ABSOLUTE LYMPHOCYTES 2.5 thou/uL (0.8-5.3); ABSOLUTE MONOCYTES 0.6 thou/uL (0.0-1.2); ABSOLUTE NEUTROPHILS 3.1 thou/uL (1.6-8.1); BASOPHILS 1.4 %; EOSINOPHILS 5.7 %; HEMATOCRIT 38.3 % (37.0-47.0); HEMOGLOBIN 12.6 gm/dL (12.0-15.0); LYMPHOCYTES 37.4 %; MONOCYTES 8.3 %; MPV 7.6 fl. (7.2-11.1); NUCLEATED RBCS 0 /100WBC; PLATELET COUNT* 261 thou/uL (150-400); POLYS 47.2 %; RBC 4.21 mil/uL (4.20-5.00); RDW-CV 14.6 % (10.5-14.5); WBC 6.7 thou/uL (4.0-11.0)
[2020-08-29 21:27] LABS: CALCIUM 9.7 mg/dL (8.5-10.1); CREATININE 0.8 mg/dL (0.6-1.3); POTASSIUM 3.7 mmol/L (3.5-5.1)
[2020-08-29 21:31] LABS: ALBUMIN 3.6 g/dL (3.4-5.0); MAGNESIUM 2.1 mg/dL (1.8-2.4); TOTAL BILIRUBIN 0.3 mg/dL (<0.1-1.0); TOTAL PROTEIN 7.2 g/dL (6.4-8.2)
[2020-08-29 22:37] LABS: URINE BILIRUBIN NEGATIVE (Negative); URINE BLOOD NEGATIVE (Negative); URINE CLARITY CLEAR; URINE COLOR YELLOW; URINE GLUCOSE-RANDOM NEGATIVE (Negative); URINE KETONES NEGATIVE (Negative); URINE LEUKOCYTES-REFLEX 1+ (Negative); URINE NITRITE-REFLEX NEGATIVE (Negative); URINE PROTEIN NEGATIVE (Negative); URINE SPECIFIC GRAVITY 1.025 (1.005-1.030); URINE UROBILINOGEN 0.2 E.U./dl (0.2-1.0)
[2020-08-29 22:47] LABS: CASTS None Seen /LPF (None Seen); MUCUS 0-3 Light strn/LPF (None Seen); SQUAMOUS 4-10 Moderate /LPF (0-3)
[2020-08-29 22:48] LABS: CRYSTALS None Seen /LPF (None Seen); URINE RBC 0-2 Rare /HPF (0-2)
[2020-08-29] MEDS ORDERED: CEPHALEXIN500 MG PO (23:08)
[2020-08-29 23:48] VITALS: BP 141/70
== END 2020-08-29 23:49 | disposition home or self-care (01) ==
LOC: M.ERS 20:41
PROVIDERS: Emergency Medicine
DX: N39.0 Urinary tract infection, site not specified (principal); R56.9 Unspecified convulsions; I10 Essential (primary) hypertension; E89.0 Postprocedural hypothyroidism; Z88.2 Allergy status to sulfonamides; Z88.8 Allergy status to other drugs, medicaments and biological substances

== ENCOUNTER 2021-05-15 18:30 | Emergency (ER) | payer MEDICARE, MEDICAID ==
[~2021-05-15] VITALS: Ht 162.6 cm; Wt 90.7 kg
[~2021-05-15 18:30] MED LIST changes: +CEPHALEXIN500 MG PO; +COZAAR 25 MG TA25 M1 PO; +EFFER-K 10 MEQ10 ME1 PO; +MELOXICAM7.5 MG PO; +MUCINEX DM ER1 EAC1 PO; +NORVASC10 MG PO; +SEROQUEL 25 MG25 MG PO; +SERTRALINE HCL100 MG PO; -SYNTHROID175 MCG PO; +SYNTHROID200 MCG PO; +TOPROL XL100 MG PO; +VIMPAT50 MG PO; +VITAMIN B-121000 MC2 SUBLING
[2021-05-15] MEDS ORDERED: CLONAZEPAM 0.50.5 M1 PO (19:23)
[2021-05-15 19:48] LABS: ABSOLUTE BASOPHILS 0.1 thou/uL (0.0-0.2); ABSOLUTE EOSINOPHILS 0.3 thou/uL (0.0-0.7); ABSOLUTE LYMPHOCYTES 1.6 thou/uL (0.8-5.3); ABSOLUTE MONOCYTES 0.5 thou/uL (0.0-1.2); ABSOLUTE NEUTROPHILS 3.6 thou/uL (1.6-8.1); BASOPHILS 0.9 %; EOSINOPHILS 4.8 %; HEMATOCRIT 37.5 % (37.0-47.0); HEMOGLOBIN 12.7 gm/dL (12.0-15.0); LYMPHOCYTES 26.4 %; MCH 31.1 pg (26.0-34.0); MCHC 33.8 g/dL (28.0-37.0); MCV 92.1 fL (80.0-100.0); MONOCYTES 8.9 %; MPV 7.5 fl. (7.2-11.1); NUCLEATED RBCS 0 /100WBC; PLATELET COUNT* 246 thou/uL (150-400); RBC 4.08 mil/uL (4.20-5.00); RDW-CV 14.1 % (10.5-14.5); WBC 6.2 thou/uL (4.0-11.0)
[2021-05-15 19:59] LABS: CALCIUM 9.1 mg/dL (8.5-10.1); CREATININE 1.2 mg/dL (0.6-1.3); POTASSIUM 4.2 mmol/L (3.5-5.1)
[2021-05-15 20:04] LABS: TOTAL BILIRUBIN 0.3 mg/dL (<0.1-1.0); TOTAL PROTEIN 7.6 g/dL (6.4-8.2)
[2021-05-15 21:19] LABS: URINE BILIRUBIN NEGATIVE (Negative); URINE BLOOD NEGATIVE (Negative); URINE CLARITY CLEAR; URINE COLOR YELLOW; URINE GLUCOSE-RANDOM NEGATIVE (Negative); URINE KETONES NEGATIVE (Negative); URINE LEUKOCYTES-REFLEX NEGATIVE (Negative); URINE NITRITE-REFLEX NEGATIVE (Negative); URINE PROTEIN NEGATIVE (Negative); URINE SPECIFIC GRAVITY <= 1.005 (1.005-1.030); URINE UROBILINOGEN 0.2 E.U./dl (0.2-1.0)
[2021-05-15 21:29] VITALS: BP 134/78
--- NOTE | 2021-05-16 10:09 | EKG ---
[place] [address] ELECTROCARDIOGRAM REPORT Name: JEN DOUGLAS Room: [facility]#: [id number] Admission: 05/15/21 Attend Phys: Discharge: 05/15/21 Date of : 60 Date of Service: 05/15/211930 Report #: [id number] THIS REPORT FOR: //name// [facility] ED Test Date: 2021-05-15 Test Time: 19:31:53 Pat Name: JEN DOUGLAS Department: Room: Gender: F Braze Operator: : 1960 Requested By: Opal Wilson Order Number: [id number] MD: Juan Barragan Measurements Intervals [place] Rate: 60 P: 72 OR: 214 QRS: 36 QRSD: 115 T: 64 QT: 431 QTc: 431 Interpretive Statements Sinus rhythm Prolonged OR interval Nonspecific intraventricular conduction delay Compared to ECG 02/22/2020 10:48:20 First degree AV block now present Intraventricular conduction delay now present Electronically Signed On 05-16-2021 10:09:01 RESET MERCHANDISER by Juan Barragan [email or web address] <ELECTRONICALLY SIGNED> By: Juan Barragan MD, FAC 05/16/21 1009 30 30 Juan Barragan MD, [facility] /EPI
== END 2021-05-15 21:30 | disposition home or self-care (01) ==
LOC: M.ERS 18:30
PROVIDERS: Physician Assistant
DX: R51.9 Headache, unspecified (principal); I10 Essential (primary) hypertension; E03.9 Hypothyroidism, unspecified; F32.9 Major depressive disorder, single episode, unspecified; F41.9 Anxiety disorder, unspecified; Z98.890 Other specified postprocedural states; Z79.899 Other long term (current) drug therapy; Z79.2 Long term (current) use of antibiotics; Z88.8 Allergy status to other drugs, medicaments and biological substances; Z88.2 Allergy status to sulfonamides; W19.XXXA Unspecified fall, initial encounter; Y93.89 Activity, other specified; Y92.128 Other place in nursing home as the place of occurrence of the external cause; Y99.8 Other external cause status